=== PATIENT | female | born 1960 | race Caucasian/White ===

== ENCOUNTER 2016-09-30 08:47 | Emergency (ER) | payer OTHER ==
[2016-09-30 09:02] VITALS: BP 184/94
--- NOTE | 2016-09-30 09:11 | UC ---
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 Negative: Difficulty Breathing, Fever, Chills, Lightheadedness, Syncope, Drainage, Bruising, Red Streaks - Allergy/Home Medications Allergies/Adverse Reactions: Allergies Allergy/AdvReac Type Severity Reaction Status Date / Time Penicillins Allergy Severe Rash Verified 07/22/16 07:30 Home Medications: Home Medications Ibuprofen TAB* [Advil TAB*] 2 tab PO PRN 09/30/16 [History] Lisinopril TAB* [Prinivil TAB 10 MG*] 40 mg PO DAILY 09/30/16 [History Confirmed 09/30/16] metFORMIN* [Glucophage*] 1 tab PO DAILY 09/30/16 [History Confirmed 09/30/16] Review of Systems Constitutional: Negative Skin: Rash, Bruising Eyes: Negative ENT: Negative Respiratory: Negative Cardiovascular: Negative Gastrointestinal: Negative Genitourinary: Negative Motor: Negative Neurovascular: Negative Musculoskeletal: Arthralgia - both feet Neurological: Negative Psychological: Negative All Other Systems Reviewed And Are Negative: Yes PMH/Surg Hx/FS Hx/Imm Hx Previously Healthy: No Endocrine History Of: Reports: Diabetes Denies: Thyroid Disease Cardiovascular History Of: Reports: Hypertension Denies: Cardiac Disorders Respiratory History Of: Reports: COPD Denies: Asthma GI/ History Of: Denies: Ulcer - Surgical History Surgical History: Yes Surgery Procedure, Year, and Place: FULL HYSTERECTOMY. TUMOR REMOVAL FROM LEFT SIDE OF NECK - Family History Known Family History: Positive: Cardiac Disease - PARENTS, Diabetes - BOTH PARENTS, Other - GRANDMOTHER - ALZ - Social History Occupation: Disabled Lives: With Family Alcohol Use: Daily Alcohol Amount: 3-4 beers daily Substance Use Type: None Smoking Status (MU): Heavy Every Day Tobacco Smoker Type: Cigarettes Amount Used/How Often: 1-2 ppd Length of Time of Smoking/Using Tobacco: started at age 15 Have You Smoked in the Last Year: Yes Household Exposure Type: Cigarettes Cessation Counseling: Counseled 3+Min - 10 Min Physical Exam Triage Information Reviewed: Yes Appearance: Well-Nourished, Ill-Appearing - chronic , appears older than stated age, Pain Distress, Other: - poor hygiene Vital Signs: Initial Vital Signs Temp 98.4 F 09/30/16 08:56 Pulse 81 09/30/16 08:56 Resp 18 09/30/16 08:56 BP 184/94 09/30/16 08:56 Pulse Ox 97 09/30/16 08:56 Vital Signs Reviewed: Yes Eye Exam: Normal Eyes: Positive: Conjunctiva Clear ENT Exam: Normal ENT: Positive: Normal ENT inspection, Hearing grossly normal, TMs normal. Negative: Nasal congestion, Nasal drainage, Trismus, Muffled/hoarse voice Neck exam: Normal Neck: Positive: Supple, Nontender, No Lymphadenopathy Respiratory Exam: Other Respiratory: Positive: Chest non-tender, No respiratory distress, No accessory muscle use Cardiovascular Exam: Normal Cardiovascular: Positive: RRR, No Murmur, Pulses Normal, Brisk Capillary Refill Musculoskeletal Exam: Other Musculoskeletal: Positive: ROM Intact, Strength Limited @ - due to pain, Edema @ - in feet worse at night Neurological Exam: Normal Neurological: Positive: Alert, Muscle Tone Normal Psychological Exam: Normal Skin: Positive: Other - purpura on both feet on on around toes and medial apects of feet blister-intact left lower leg posterior, hands are itchy Diagnostics - Laboratory Diagnostic Studies Completed/Ordered: fsbs 120 Course/Dx - Course Course Of Treatment: dressing applied, antibiodic ordered, daughter will be going to mothers home to help with pets, daughter also can take her mother to MD appointment tomorrow at 2pm.. follow with pcp as planned or to ED for worsening symptoms - Differential Diagnoses - Skin Complaint Differential Diagnoses: Abscess, Cellulitis, Impetigo - Diagnoses Provider Diagnoses: Cellulitis, PVD, nicotine dependant, alcohol misuse - Physician Notification/Consults Discussed Patient Care With: Dr. Hanks Time Discussed With Above Provider: 09:30 Instructed by Provider To: Other - antibiodics dressings pedro saeed with PCP Discharge - Discharge Plan Condition: Stable Disposition: HOME Prescriptions: Ibuprofen TAB* [Motrin TAB* 600 MG] 600 mg PO Q6H PRN #20 tab PRN Reason: pain Levofloxacin TAB* [Levaquin TAB*] 500 mg PO DAILY #10 tab Patient Education Materials: How to Stop Smoking (ED), Wound Infection (ED), Cigarette Smoking and Your Health (GEN), Acute Wound Care (ED), Wound Healing and Your Diet (ED) Referrals: Tamiko Chahal PA [Primary Care Provider] - 10/01/16 2:00 pm
[2016-09-30] MEDS ORDERED: hydrOXYzine HCL TAB* 25 MG PO ONE (10:21)
[2016-09-30] MEDS ORDERED: Ibuprofen TAB* 600 MG PO ONE (10:27)
== END 2016-09-30 10:45 | disposition home or self-care (01) ==
LOC: UCEAST 08:47
DX: L03.116 Cellulitis of left lower limb (principal); L03.115 Cellulitis of right lower limb; I73.9 Peripheral vascular disease, unspecified; Z72.89 Other problems related to lifestyle; E11.9 Type 2 diabetes mellitus without complications; Z79.84 Long term (current) use of oral hypoglycemic drugs; Z88.0 Allergy status to penicillin; F17.210 Nicotine dependence, cigarettes, uncomplicated
CPT/HCPCS: 99213; A9270-GY; G0463

== ENCOUNTER 2017-02-25 19:09 | Emergency (ER) | payer OTHER ==
[2017-02-25 19:25] VITALS: BP 207/92
--- NOTE | 2017-02-25 20:02 | UC ---
Skin Complaint HPI - HPI Summary HPI Summary: 56 yo female with the onset of a pain bullous rash on her left elbow similar rash occurred on foot 8-10 months ago no bites or stings has not been out doors no pruritis - History of Current Complaint Chief Complaint: UCSkin Time Seen by Provider: 02/25/17 19:53 Stated Complaint: SKIN COMPLAINT-BLISTERS/ITCHING Hx Obtained From: Patient Onset/Duration: Sudden Onset, Lasting Hours Timing: Constant Onset Severity: Mild Current Severity: Moderate Pain Intensity: 4 Pain Scale Used: 0-10 Numeric Location: Other - left elbow Character: Swelling, Redness, Raised, Painful Aggravating: Nothing Alleviating: Nothing Associated Signs & Symptoms: Positive: Rash - Allergy/Home Medications Allergies/Adverse Reactions: Allergies Allergy/AdvReac Type Severity Reaction Status Date / Time Penicillins Allergy Severe Rash Verified 02/25/17 19:25 Review of Systems Constitutional: Negative Skin: Negative Eyes: Negative ENT: Negative Respiratory: Negative Cardiovascular: Negative Gastrointestinal: Negative Genitourinary: Negative Motor: Negative Neurovascular: Negative Musculoskeletal: Negative Neurological: Negative Psychological: Negative All Other Systems Reviewed And Are Negative: Yes PMH/Surg Hx/FS Hx/Imm Hx Previously Healthy: Yes Endocrine History: Diabetes Cardiovascular History: Hypertension - Surgical History Surgical History: Yes Surgery Procedure, Year, and Place: FULL HYSTERECTOMY. TUMOR REMOVAL FROM LEFT SIDE OF NECK - Family History Known Family History: Positive: Cardiac Disease - PARENTS, Hypertension, Diabetes - BOTH PARENTS, Other - GRANDMOTHER - ALZ - Social History Alcohol Use: Daily Alcohol Amount: 3-4 beers daily Substance Use Type: None Smoking Status (MU): Heavy Every Day Tobacco Smoker Type: Cigarettes Amount Used/How Often: 1-2 ppd Length of Time of Smoking/Using Tobacco: started at age 15 Have You Smoked in the Last Year: Yes Household Exposure Type: Cigarettes Physical Exam Triage Information Reviewed: Yes Appearance: Well-Appearing, No Pain Distress, Well-Nourished Vital Signs: Initial Vital Signs Temp 99.9 F 02/25/17 19:20 Pulse 90 02/25/17 19:20 Resp 18 02/25/17 19:20 BP 207/92 02/25/17 19:20 Pulse Ox 98 02/25/17 19:20 Vital Signs Reviewed: Yes Eyes: Positive: Conjunctiva Clear ENT: Positive: Hearing grossly normal. Negative: Nasal congestion, Nasal drainage, Trismus, Muffled/hoarse voice Neck: Positive: Supple, Nontender Respiratory: Positive: Lungs clear, Normal breath sounds, No respiratory distress Cardiovascular: Positive: RRR Musculoskeletal: Positive: ROM Intact, No Edema Neurological: Positive: Alert Psychological Exam: Normal Skin Exam: Other - left elbow- bright erthema slightly raised, 5-7 tense bullous lesions, one draining and cultured Course/Dx - Diagnoses Provider Diagnoses: left elbow bullous lesions of uncertain cause Discharge - Discharge Plan Condition: Good Disposition: HOME Patient Education Materials: Acute Rash (ED) Referrals: Tamiko Pang PA [Primary Care Provider] - 4 Days Additional Instructions: I am unsure of the cause of your rash recheck for worsening symptoms see your provider early next week you need to get back on your BP meds
[2017-02-25] MEDS ORDERED: Cephalexin CAP* 500 MG PO ONE ×2 (20:03→20:04)
== END 2017-02-25 20:30 | disposition home or self-care (01) ==
LOC: UCEAST 19:09
DX: L13.9 Bullous disorder, unspecified (principal); Z72.0 Tobacco use; E11.9 Type 2 diabetes mellitus without complications; I10 Essential (primary) hypertension
CPT/HCPCS: 87070; 87205; 99213; A9270-GY; G0463

== ENCOUNTER 2017-10-01 14:23 | Emergency (ER) | payer OTHER ==
[2017-10-01] MEDS ORDERED: HYDROcodone/ACETAMIN 5-325 MG* 1 TAB PO ONE (15:12)
--- NOTE | 2017-10-01 16:08 | RAD ---
INDICATION: Atraumatic back pain in a 26-year-old COMPARISON: CT chest same date; chest x-ray May 18, 2016 TECHNIQUE: Noncontrast axial source images was performed from the thoracic inlet to the level the hemidiaphragms. Coronal and and sagittal reformatted images were generated. FINDINGS: Vertebrae: There is no fracture or acute focal bony lesion. Alignment: The thoracic vertebrae are normally aligned. Central Canal: There are no significant CT abnormalities of the central canal or foramina. MR imaging is a more sensitive method to evaluate the canal and foramina. Intervertebral disc spaces: There is narrowing about T9-T10 with minor endplate sclerosis and perhaps minor calcification of the disc posteriorly. There is degenerative disc disease with endplate sclerosis at L1-L2. Soft tissues: There are no paravertebral soft tissue abnormalities. IMPRESSION: Degenerative disc disease T9-T10 and L1-L2
--- NOTE | 2017-10-01 16:12 | RAD ---
Indication: Cough, pneumonia. CT of the chest performed without IV contrast. Coronal and sagittal reconstructed images were obtained. Inferior thyroid lobes are unremarkable. 3 to 5 mm pretracheal and precarinal lymph nodes are noted. The heart demonstrates no pericardial effusion. The trachea and major bronchi appear patent. There is atelectasis in the medial right upper lobe with areas of pneumonitis and atelectasis along the fissure posteriorly. These may represent underlying infiltrate and pneumonia. No other nodules or masses are noted. No consolidation is noted. The heart demonstrates no pericardial effusion. The visualized abdominal organs demonstrates hepatic steatosis. There is right adrenal mass measuring 3 cm consistent with an adrenal lipoma or adenoma. IMPRESSION: Right upper lobe atelectasis and infiltrate may represent pneumonia or pneumonitis. Follow-up exam is suggested. Hepatic steatosis is noted. Right adrenal mass measuring 3.0 cm.
[2017-10-01 16:24] VITALS: BP 182/88
--- NOTE | 2017-10-01 16:40 | UC ---
Luis Manzo Tecjoon, scribed for Lonnie Wood MD on 10/01/17 at 1522 . Back Pain HPI - HPI Summary HPI Summary: This patient is a 56 year old female presenting to [facility] with a chief complaint of diffuse mid-back pain since approximately an hour ago. The pain is described as sharp and aching. The pain is rated 10/10 in severity. Symptoms aggravated by palpation, cough, swallowing, movement. Symptoms alleviated by nothing. Patient additionally reports cough. Patient denies neck pain, abd pain, chest pain, leg pain. Patient denies hx of blood clots. - History of Current Complaint Chief Complaint: UCBackPain Stated Complaint: BACK PAIN Time Seen by Provider: 10/01/17 15:06 Hx Obtained From: Patient Hx Last Menstrual Period: menopause Onset/Duration: Sudden Onset, Lasting Hours - 1, Still Present Timing: Constant, Lasting Hours Severity Currently: Severe Pain Intensity: 10 - aching, sharp Pain Scale Used: 0-10 Numeric Back Pain: Is Diffuse - mid back area Character: Sharp, Aching Aggravating Factor(s): Movement, Cough, Other - swallowing Associated Signs And Symptoms: Positive: Negative - neck pain, abd pain, chest pain, leg pain, Other - cough - Allergies/Home Medications Allergies/Adverse Reactions: Allergies Allergy/AdvReac Type Severity Reaction Status Date / Time Penicillins Allergy Severe Rash Verified 02/25/17 19:25 Home Medications: Home Medications Lisinopril [Zestril 40 MG-] 40 mg PO DAILY 10/01/17 [History Confirmed 10/01/17] PMH/Surg Hx/FS Hx/Imm Hx Previously Healthy: Yes Cardiovascular History: Hypertension Neurological History: Other - negative: CVA Other Neurological History: . - Surgical History Surgical History: Yes Surgery Procedure, Year, and Place: FULL HYSTERECTOMY. TUMOR REMOVAL FROM LEFT SIDE OF NECK - Family History Known Family History: Positive: Cardiac Disease - PARENTS, Hypertension, Diabetes - BOTH PARENTS, Other - GRANDMOTHER - ALZ - Social History Lives: With Family Alcohol Use: Daily Alcohol Amount: 6 daily Substance Use Type: None Smoking Status (MU): Heavy Every Day Tobacco Smoker Type: Cigarettes Amount Used/How Often: 1-2 ppd Length of Time of Smoking/Using Tobacco: started at age 15 Have You Smoked in the Last Year: Yes Household Exposure Type: Cigarettes Review of Systems Respiratory: Cough Cardiovascular: Negative - chest pain Gastrointestinal: Negative - abd pain Musculoskeletal: Negative - leg pain, Other: - back pain All Other Systems Reviewed And Are Negative: Yes Physical Exam Triage Information Reviewed: Yes Vital Signs: Initial Vital Signs Temp 97.2 F 10/01/17 14:30 Pulse 85 10/01/17 14:30 Resp 16 10/01/17 14:30 BP 162/87 10/01/17 14:30 Pulse Ox 96 10/01/17 14:30 - Additional Comments General: well-appearing, moderate pain distress Skin: warm, color reflects adequate perfusion, dry Head: normal Eyes: EOMI, JANET ENT: normal Neck: supple, nontender Respiratory: loose cough Cardiovascular: RRR Abdomen: soft, nontender Bowel: present Back: Tender over thoracic spine, about level of T5-T8. Musculoskeletal: normal, strength/ROM intact Neurological: normal, sensory/motor intact, A&O x3 Psychological: affect/mood appropriate Back Pain Course/Dx - Course Course Of Treatment: CT T-Spine reveals, per radiologist, IMPRESSION: Degenerative disc disease T9-T10 and L1-L2. physician has reviewed this radiology report. CT Chest reveals, per radiologist, IMPRESSION: Right upper lobe atelectasis and infiltrate may represent pneumonia or pneumonitis. Follow- up exam is suggested. Hepatic steatosis is noted. Right adrenal mass measuring 3.0 cm. physician has reviewed this radiology report. BP noted and advised to follow up with PCP - Differential Dx/Diagnosis Provider Diagnoses: PNEUMONIA. THORACIC BACK STRAIN AND DEGENERATIVE DISC DISEASE Discharge - Discharge Plan Condition: Stable Disposition: HOME Prescriptions: Azithromyxin BERNARDINO (NF) [Z-Bernardino (Zithromax) 250 mg tabs #6] 2 tab PO .TODAY, THEN 1 DAILY #6 tab HYDROcodone/ACETAMIN 5-325 MG* [[place] 5-325 TAB*] 1 tab PO Q4H PRN #20 tab MDD 6 PRN Reason: Pain Patient Education Materials: COPD (Chronic Obstructive Pulmonary Disease) (ED) , Pneumonia (ED), Degenerative Disc Disease (ED), Thoracic Back Strain (ED) Referrals: Alexa Aleman PA [Primary Care Provider] - 1 Week Additional Instructions: Your blood pressure was elevated during todays visit; please follow up with your primary care provider within a week for further evaluation FOLLOW UP WITH YOUR DOCTOR. GO TO THE EMERGENCY DEPARTMENT FOR ANY WORSENING OF YOUR CONDITION; PAIN, SHORTNESS OF BREATH, YOU FEEL ILL OR QUESTIONS OR CONCERNS. The documentation as recorded by the Luis carter Tecjoon accurately reflects the service I personally performed and the decisions made by me, Lonnie Wood MD.
== END 2017-10-01 16:51 | disposition home or self-care (01) ==
LOC: UCEAST 14:23
DX: S29.012A Strain of muscle and tendon of back wall of thorax, initial encounter (principal); J18.9 Pneumonia, unspecified organism; M51.36 Other intervertebral disc degeneration, lumbar region; M51.34 Other intervertebral disc degeneration, thoracic region; I10 Essential (primary) hypertension; K76.0 Fatty (change of) liver, not elsewhere classified; F17.210 Nicotine dependence, cigarettes, uncomplicated; Z78.0 Asymptomatic menopausal state; Z88.0 Allergy status to penicillin; E27.8 Other specified disorders of adrenal gland; X58.XXXA Exposure to other specified factors, initial encounter; Y92.9 Unspecified place or not applicable
CPT/HCPCS: 71250; 72128; 99212; G0463

== ENCOUNTER 2018-02-24 08:32 | Emergency (ER) | payer OTHER ==
[2018-02-24 08:40] VITALS: BP 100/80
[2018-02-24] MEDS ORDERED: HYDROcodone/ACETAMIN 5-325 MG* 1 TAB PO ONE (08:47)
--- NOTE | 2018-02-24 09:12 | RAD ---
HISTORY: Medial foot pain, status post fall, subacute trauma COMPARISONS: None VIEWS: 3, Frontal, lateral, and oblique views of the left foot FINDINGS: BONE DENSITY: Normal. BONES: There is comminuted nondisplaced fracture of the base of the first metatarsal. Posterior calcaneal enthesophytes. JOINTS: There is no arthropathy. ALIGNMENT: There is no dislocation. The Lisfranc interval is preserved. SOFT TISSUES: Unremarkable. OTHER FINDINGS: None. IMPRESSION: COMMINUTED NONDISPLACED FRACTURE OF THE BASE OF THE FIRST METATARSAL.
--- NOTE | 2018-02-24 12:24 | UC ---
Fabiola Manzo Tenzin, scribed for Lonnie Wood MD on 02/24/18 at 0856 . Lower Extremity/Ankle HPI - HPI Summary HPI Summary: Pt is a 57 years old female presenting to the complaining of left foot pain from a fall that occurred 5 days ago. Pt rates the pain at 4/10 in severity. Pain is described as aching, tight and sharp. She reports that she took Motrin but it didn't help alleviate her pain. No aggravating and alleviating factors noted. - History of Current Complaint Chief Complaint: UCLowerExtremity Stated Complaint: LEFT FOOT INJURY Time Seen by Provider: 02/24/18 08:44 Hx Obtained From: Patient Hx Last Menstrual Period: menopause Onset/Duration: Lasting Days - 5 days ago. Severity Initially: Mild Severity Currently: Mild Pain Intensity: 4 Pain Scale Used: 0-10 Numeric Aggravating Factor(s): Nothing Alleviating Factor(s): Nothing - Allergies/Home Medications Allergies/Adverse Reactions: Allergies Allergy/AdvReac Type Severity Reaction Status Date / Time Penicillins Allergy Hives Verified 02/24/18 08:41 PMH/Surg Hx/FS Hx/Imm Hx - Surgical History Surgical History: Yes Surgery Procedure, Year, and Place: FULL HYSTERECTOMY. TUMOR REMOVAL FROM LEFT SIDE OF NECK - Family History Known Family History: Positive: Cardiac Disease - PARENTS, Hypertension, Diabetes - BOTH PARENTS, Other - GRANDMOTHER - ALZ - Social History Alcohol Use: Weekly Alcohol Amount: 6 daily Substance Use Type: None Smoking Status (MU): Heavy Every Day Tobacco Smoker Type: Cigarettes Amount Used/How Often: 1-2 ppd Length of Time of Smoking/Using Tobacco: started at age 15 Have You Smoked in the Last Year: Yes Household Exposure Type: Cigarettes Review of Systems Constitutional: Negative Skin: Negative Eyes: Negative ENT: Negative Respiratory: Negative Cardiovascular: Negative Gastrointestinal: Negative Genitourinary: Negative Motor: Negative Neurovascular: Negative Musculoskeletal: Other: - Left foot pain. Neurological: Negative Psychological: Negative All Other Systems Reviewed And Are Negative: Yes Physical Exam - Summary Physical Exam Summary: General: well-appearing, no pain distress Skin: warm, color reflects adequate perfusion, dry Head: normal Eyes: EOMI, JANET ENT: normal Neck: supple, nontender Respiratory: CTA, breath sounds present Cardiovascular: RRR Abdomen: soft, nontender Bowel: present Musculoskeletal: Left foot swollen to medial aspect and tender to palpation, Non tender lateral aspect on the 5th metatarsel, Ankle is non-tender,normal, strength/ROM intact Neurological: sensory/motor intact, A&O x3 Psychological: affect/mood appropriate Triage Information Reviewed: Yes Vital Signs: Initial Vital Signs Temp 97.9 F 02/24/18 08:37 Pulse 62 02/24/18 08:37 Resp 16 02/24/18 08:37 BP 100/80 02/24/18 08:37 Pulse Ox 98 02/24/18 08:37 Vital Signs Reviewed: Yes Diagnostics - Radiology Left Foot X ray Radiology Interpretation Completed By: Radiologist - IMPRESSION: COMMINUTED NONDISPLACED FRACTURE OF THE BASE OF THE FIRST METATARSAL. Dr. Wood reviewed the report. Lower Extremity Course/Dx - Course Course Of Treatment: DISCUSSED SPLINTING AND NON WEIGHT BEARING WITH CRUTCHES. THE PATIENT DECLINED NON WEIGHT BEARING. GIVEN CAM WALKER IN CLINIC. F/U ORTHOPEDICS. - Differential Dx/Diagnosis Provider Diagnoses: LEFT 1ST METATARSAL FRACTURE Discharge - Sign-Out/Discharge Documenting (check all that apply): Discharge/Admit/Transfer - Discharge Plan Condition: Stable Disposition: HOME Prescriptions: HYDROcodone/ACETAMIN 5-325 MG* [[place] 5-325 TAB*] 1 tab PO Q4H PRN #20 tab MDD 6 PRN Reason: Pain Patient Education Materials: Foot Fracture in Adults (ED) Referrals: Alexa Aleman PA [Primary Care Provider] - Maximo Dao MD [Medical Doctor] - Additional Instructions: FOLLOW UP WITH ORTHOPEDICS. AVOID WEIGHT BEARING ON YOUR INJURED FOOT. GET RECHECKED FOR ANY WORSENING OF YOUR CONDITION OR QUESTIONS OR CONCERNS. - Billing Disposition and Condition Condition: STABLE Disposition: Home The documentation as recorded by the Fabiola carter Tenzin accurately reflects the service I personally performed and the decisions made by me, Lonnie Wood MD.
== END 2018-02-24 09:48 | disposition home or self-care (01) ==
LOC: UCEAST 08:32
DX: S92.315A Nondisplaced fracture of first metatarsal bone, left foot, initial encounter for closed fracture (principal); S82.892A Other fracture of left lower leg, initial encounter for closed fracture; W19.XXXA Unspecified fall, initial encounter; Y93.9 Activity, unspecified; Y92.9 Unspecified place or not applicable; Z88.0 Allergy status to penicillin; Z82.49 Family history of ischemic heart disease and other diseases of the circulatory system; Z83.3 Family history of diabetes mellitus; Z82.0 Family history of epilepsy and other diseases of the nervous system; F17.210 Nicotine dependence, cigarettes, uncomplicated
CPT/HCPCS: 99212; G0463